=== PATIENT | female | born 1970 | race Caucasian/White ===

== ENCOUNTER 2017-11-10 18:13 | Emergency (ER) | payer OTHER ==
[2017-11-10] MEDS ORDERED: LORazepam 2 MG/ML VIAL ONE (18:54)
[2017-11-10] MEDS ORDERED: NA CHLORIDE 0.9% 1,000 ML ONE (18:54)
--- NOTE | 2017-11-10 19:18 | RAD REPORT ---
EXAM DESCRIPTION: CT - Head Brain Wo Cont - 11/10/2017 6:54 pm CLINICAL HISTORY: Headache COMPARISON: 2013 TECHNIQUE: Computed axial tomography of the head was obtained. IV contrast was not requested. All CT scans are performed using dose optimization technique as appropriate and may include automated exposure control or mA/KV adjustment according to patient size. FINDINGS: An intracranial bleed is not seen . The ventricles are normal in caliber. No extra-axial fluid collection is noted. Fluid within the sinuses/ mastoids is not seen. IMPRESSION: No acute intracranial abnormality is seen. If patient's symptoms persist MRI of the bra in would be recommended.
[2017-11-10 19:20] LABS: Absolute Lymphocytes (CBC) 2.7 K/uL (0.7-4.9); Absolute Monocytes 0.9 K/uL (0.1-1.3); Absolute Neutrophil 7.3 K/uL (1.8-8.0); Basophils % 0.6 % (0-1.3); Eosinophils % 0.5 % (0-4.4); Lymphocytes % 24.2 % (15.3-44.8); MCH 31.9 pg (27.0-35.0); MCV 96.1 fL (80-100); Monocytes % 8.4 % (3.3-12.3); RBC Red Blood Cell Count 4.37 M/uL (3.86-4.86)
[2017-11-10 19:28] LABS: Bicarbonate 25 mEq/L (21-31); Glucose Level 139 mg/dL (65-120); Lipase 29 U/L (22-51); Potassium 3.1 mEq/L (3.6-5.0); Sodium Level 136 mEq/L (135-145)
[2017-11-10 19:34] LABS: ALT/SGPT 13 IU/L (10-60); AST/SGOT 25 IU/L (10-42); Albumin 4.9 g/dL (3.2-5.5); Alkaline Phosphatase 65 IU/L (42-121); BUN Blood Urea Nitrogen 9 mg/dL (6-20); Bilirubin Direct 0.1 mg/dL (0-0.2); Bilirubin Total 0.6 mg/dL (0.3-1.2); Protein, Total 8.2 g/dL (6.0-8.3)
--- NOTE | 2017-11-10 20:06 | ER ---
Nurse's Notes [facility] Name: Viktoriya Portillo Age: 47 yrs Sex: Female : 1970 Arrival Date: 11/10/2017 Time: 18:17 Bed 7 Private MD: Diagnosis: Other peripheral vertigo Presentation: 11/10 18:17 Presenting complaint: EMS states: She's had a STEVE x2 days, started feeling weak and jl7 dizzy today, having a little trouble walking. Reports nausea, denies V/D. Transition of care:. Onset of symptoms was November 08, 2017. Care prior to arrival: None. 18:17 Method Of Arrival: EMS: [facility] jl7 18:17 Acuity: NENA 3 jl7 Triage Assessment: 18:40 General: Appears uncomfortable, Behavior is cooperative. Pain: Complains of pain in jl7 left upper quadrant and right upper quadrant. EENT: No signs and/or symptoms were reported regarding the EENT system. Neuro: Level of Consciousness is awake, alert, obeys commands, Oriented to person, place, time, situation. Cardiovascular: Patient's skin is warm and dry. Respiratory: Airway is patent Respiratory effort is even, unlabored, Respiratory pattern is regular, symmetrical. GI: Pt is actively vomiting undigested food, Reports nausea. : No signs and/or symptoms were reported regarding the genitourinary system. Derm: Skin is dry, Skin is pale, Skin temperature is warm. Musculoskeletal: No signs and/or symptoms reported regarding the musculoskeletal system. 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 - Social history:: Smoking status: Patient/guardian denies using tobacco. Screenin:55 Abuse screen: Denies threats or abuse. Denies injuries from another. Nutritional jl7 screening: No deficits noted. Tuberculosis screening: No symptoms or risk factors identified. Fall Risk IV access (20 points). Total Jj Fall Scale indicates No Risk (0-24 pts). Assessment: 18:55 General: Appears uncomfortable, Behavior is calm, cooperative, appropriate for age. jl7 Pain: Complains of pain in right upper quadrant and left upper quadrant Pain currently is 8 out of 10 on a pain scale. Quality of pain is described as aching, Is continuous. Neuro: Level of Consciousness is awake, alert, obeys commands, Oriented to person, place, time, situation. Cardiovascular: Patient's skin is warm and dry. Respiratory: Airway is patent Respiratory effort is even, unlabored, Respiratory pattern is regular, symmetrical. GI: Pt is actively vomiting undigested food. : No signs and/or symptoms were reported regarding the genitourinary system. EENT: No signs and/or symptoms were reported regarding the EENT system. Derm: Skin is dry, Skin is pale, Skin temperature is warm. Musculoskeletal: No signs and/or symptoms reported regarding the musculoskeletal system. 19:31 Reassessment: Patient is alert, oriented x 3, equal unlabored respirations, skin ak1 warm/dry/pink. Patient states symptoms have improved. pt stated the Ativan relieved the nausea. pt requested a rolled up sheet instead of the pillow. family at the bedside. will continue to monitor. . 19:32 GI: Bowel sounds present X 4 quads. Abd is soft and non tender X 4 quads. ak1 20:00 Reassessment: pt sleeping with even unlabored resp. pt woken to speak to ERP and ak1 ambulated down the portillo with steady gait and no dizziness report. . Vital Signs: 18:21 BP 154 / 100; Pulse 104; Resp 20 S; Temp 98.2(O); Pulse Ox 98% on R/A; Weight 52.16 kg jl7 (R); Height 5 ft. 3 in. (160.02 cm) (R); 18:45 BP 127 / 85; Pulse 92; Resp 19; Pulse Ox 100% on R/A; ae1 20:26 BP 110 / 66; Pulse 87; Resp 14; Temp 98; Pulse Ox 98% on R/A; Pain 0/10; ak1 18:21 Body Mass Index 20.37 (52.16 kg, 160.02 cm) jl7 NIH Stroke Scale Scores: 20:01 NIHSS Score: 0 ED Course: 18:17 Patient arrived in ED. jl7 18:20 Triage completed. jl7 18:21 Ayan Hummel MD is Attending Physician. gs 18:21 Arm band placed on right wrist. jl7 18:37 Rl Benson, RN is Primary Nurse. ae1 18:46 EKG done, by ED staff, reviewed by Ayan Hummel MD. jb1 18:[address] via stretcher. ae1 18:54 CT Head Brain wo Cont In Process Unspecified. EDMS 18:55 Patient has correct armband on for positive identification. Placed in gown. Bed in low jl7 position. Call light in reach. Side rails up X 1. Pulse ox on. NIBP on. Warm blanket given. 18:55 Initial lab(s) drawn, by va, sent to lab. Inserted saline lock: 20 gauge in right jl7 antecubital area, using aseptic technique. Blood collected. 19:13 Primary Nurse role handed off by Rl Benson RN jl7 19:13 Aristides Mendoza RN is Primary Nurse. jl7 19:13 Report given to CLAUDIA Lees. jl7 19:20 No provider procedures requiring assistance completed. ak1 19:49 Primary Nurse role handed off by Aristides Mendoza RN rg2 20:05 Josse Jimenez MD is Referral Physician. gs 20:24 Yoana Wayne RN is Primary Nurse. ak1 20:26 IV discontinued, intact, bleeding controlled, No redness/swelling at site. ak1 Administered Medications: 18:45 Drug: NS 0.9% 1000 ml Route: IV; Rate: 1 bolus; Site: right antecubital; ae1 20:25 Follow up: IV Status: Completed infusion ak1 18:47 Drug: Ativan 1 mg Route: IVP; Site: right antecubital; ae1 19:06 Follow up: Response: No adverse reaction jl7 19:00 Drug: Ativan 1 mg Route: IVP; Site: right antecubital; jl7 19:12 Follow up: Response: No adverse reaction jl7 Outcome: 20:05 Discharge ordered by . gs 20:26 Discharged to home via wheelchair, with family. ak1 20:26 Condition: good 20:26 Discharge instructions given to patient, family, Instructed on discharge instructions, follow up and referral plans. no drinking with medication, no driving heavy equipment, medication usage, Demonstrated understanding of instructions, follow-up care, medications, Prescriptions given X 1. 20:28 Patient left the ED. ak1 NIH Stroke Scale - NIH Stroke Score Date: 11/10/2017 Time: 20:01 Total Score = 0 1a. Level of Consciousness (LOC) - 0(Alert) 1b. Level of Consciousness (LOC) (Year \T\ Age) - 0(Both) 1c. LOC Commands (Open \T\ Closes Eyes/Rail Crew Member) - 0(Both) 2. Best Gaze (Lateral Gaze Paresis) - 0(Normal) 3. Visual Field Loss - 0(No visual loss) 4. Facial Palsy - 0(Normal) 5a. Left Arm: Motor (10-second hold) - 0(No drift) 5b. Right Arm: Motor (10-second hold) - 0(No drift) 6a. Left Leg: Motor (5-second hold - always test supine) - 0(No drift) 6b. Right Leg: Motor (5-second hold - always test supine) - 0(No drift) 7. Limb Ataxia (finger/nose \T\ heel/olivarez - test with eyes open) - 0(Absent) 8. Sensory Loss (pinprick arms/legs/face) - 0(Normal) 9. Best Language: Aphasia (description/naming/reading) - 0(No aphasia) 10. Dysarthria (speech clarity - read or repeat words) - 0(Normal) 11. Extinction and Inattention (visual/tactile/auditory/spatial/personal) - 0(No abnormality) Initials: gs Signatures: Dispatcher [employer] EDHaile Noyola jb1 Aidan You rg2 Yoana Wayne RN RN ak1 Rl Benson RN RN ae1 Aristides Mendoza RN RN jl7 Ayan Hummel MD MD
--- NOTE | 2017-11-10 20:06 | EDPHYS ---
Physician Documentation [facility] Name: Viktoriya Portillo Age: 47 yrs Sex: Female : 1970 Arrival Date: 11/10/2017 Time: 18:17 Bed 7 Private MD: ED Physician Ayan Hummel HPI: 11/10 20:00 This 47 yrs old Female presents to ER via EMS with complaints of gs Nausea/Vomiting, Dizzy. 20:00 The patient presents with sense of spinning, vertigo. Onset: The symptoms/episode gs began/occurred today. Context: occurred at home. Modifying factors: the symptoms are aggravated by movement of head, changing position. Associated signs and symptoms: Pertinent positives: vomiting. Severity of symptoms: At their worst the symptoms were severe in the emergency department the symptoms are unchanged. Patient's baseline: Neuro: alert and fully oriented, Motor: no deficits, Ambulation: walks without assistance, Speech: normal. The patient has experienced similar episodes in the past, a few times, history of nystagmus. The patient has not recently seen a physician. 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 - Social history:: Smoking status: Patient/guardian denies using tobacco. ROS: 20:01 Neuro: Positive for headache, headache mild not severe not thunder clap. gs 20:01 All other systems are negative. Exam: 20:01 Head/Face: Normocephalic, atraumatic. ENT: Nares patent. No nasal discharge, no gs septal abnormalities noted. Tympanic membranes are normal and external auditory canals are clear. Oropharynx with no redness, swelling, or masses, exudates, or evidence of obstruction, uvula midline. Mucous membranes moist. Neck: Trachea midline, no thyromegaly or masses palpated, and no cervical lymphadenopathy. Supple, full range of motion without nuchal rigidity, or vertebral point tenderness. No Meningismus. Chest/axilla: Normal chest wall appearance and motion. Nontender with no deformity. No lesions are appreciated. Cardiovascular: Regular rate and rhythm with a normal S1 and S2. No gallops, murmurs, or rubs. Normal PMI, no JVD. No pulse deficits. Respiratory: Lungs have equal breath sounds bilaterally, clear to auscultation and percussion. No rales, rhonchi or wheezes noted. No increased work of breathing, no retractions or nasal flaring. Abdomen/GI: Soft, non-tender, with normal bowel sounds. No distension or tympany. No guarding or rebound. No evidence of tenderness throughout. Back: No spinal tenderness. No costovertebral tenderness. Full range of motion. Skin: Warm, dry with normal turgor. Normal color with no rashes, no lesions, and no evidence of cellulitis. MS/ Extremity: Pulses equal, no cyanosis. Neurovascular intact. Full, normal range of motion. 20:01 Constitutional: The patient appears alert, awake, in obvious distress, moderately distressed. 20:01 Eyes: Pupils: no acute changes, Extraocular movements: Nystagmus: nystagmus with fast component noted, bilaterally, horizontal gaze. 20:01 Neuro: Orientation: is normal, Mentation: is normal, Memory: is normal, Cranial nerves: CN II- XII are normal as tested, Nystagmus with fast component in outer aspect of conjuctiva of right eye and inner aspect of conjunctiva of left eye. Cerebellar function: normal finger to nose testing, heel to olivarez testing is normal, Motor: moves all fours, strength is 5/5 in all extremities, Sensation: is normal, no obvious gross deficits. 20:01 ECG was reviewed by the Attending Physician. Vital Signs: 18:21 BP 154 / 100; Pulse 104; Resp 20 S; Temp 98.2(O); Pulse Ox 98% on R/A; Weight 52.16 kg jl7 (R); Height 5 ft. 3 in. (160.02 cm) (R); 18:45 BP 127 / 85; Pulse 92; Resp 19; Pulse Ox 100% on R/A; ae1 20:26 BP 110 / 66; Pulse 87; Resp 14; Temp 98; Pulse Ox 98% on R/A; Pain 0/10; ak1 18:21 Body Mass Index 20.37 (52.16 kg, 160.02 cm) jl7 NIH Stroke Scale Scores: 20:01 NIHSS Score: 0 gs MDM: 18:23 Patient medically screened. 20:01 Differential diagnosis: cardiac arrhythmia, idiopathic dizziness, vertigo. Data reviewed: vital signs, nurses notes. Response to treatment: the patient's symptoms have markedly improved after treatment, and as a result, I will discharge patient. 11/10 18:29 Order name: Basic Metabolic Panel; Complete Time: 19:51 11/10 18:29 Order name: CBC with Diff; Complete Time: 19:51 11/10 18:29 Order name: Hepatic Function; Complete Time: 19:51 11/10 18:29 Order name: Lipase; Complete Time: 19:51 11/10 18:29 Order name: CT Head Brain wo Cont; Complete Time: 19:51 11/10 18:29 Order name: IV Saline Lock; Complete Time: 18:46 11/10 18:29 Order name: Labs collected and sent; Complete Time: 18:46 11/10 18:29 Order name: EKG - Nurse/Tech; Complete Time: 18:46 gs EC:01 Rate is 94 beats/min. Rhythm is regular. NM interval is normal. QRS interval is normal. gs T waves are Flattened. No ST changes noted. Clinical impression: Abnormal EKG without significant change. Interpreted by me. Administered Medications: 18:45 Drug: NS 0.9% 1000 ml Route: IV; Rate: 1 bolus; Site: right antecubital; ae1 20:25 Follow up: IV Status: Completed infusion ak 18:47 Drug: Ativan 1 mg Route: IVP; Site: right antecubital; ae1 19:06 Follow up: Response: No adverse reaction jl7 19:00 Drug: Ativan 1 mg Route: IVP; Site: right antecubital; jl7 19:12 Follow up: Response: No adverse reaction 7 Disposition: 11/10/17 20:05 Discharged to Home. Impression: Other peripheral vertigo. - Condition is Stable. - Discharge Instructions: Benign Positional Vertigo. - Prescriptions for Ativan 1 mg Oral Tablet - take 1 tablet by ORAL route every 8 hours As needed; 12 tablet. - Medication Reconciliation Form, Thank You Letter, Antibiotic Education, Prescription Opioid Use form. - Follow up: Josse Jimenez MD; When: 2 - 3 days; Reason: Re-evaluation by your physician. NIH Stroke Scale - NIH Stroke Score Date: 11/10/2017 Time: 20:01 Total Score = 0 1a. Level of Consciousness (LOC) - 0(Alert) 1b. Level of Consciousness (LOC) (Year \T\ Age) - 0(Both) 1c. LOC Commands (Open \T\ Closes Eyes/Senior Manufacturing Supervisor) - 0(Both) 2. Best Gaze (Lateral Gaze Paresis) - 0(Normal) 3. Visual Field Loss - 0(No visual loss) 4. Facial Palsy - 0(Normal) 5a. Left Arm: Motor (10-second hold) - 0(No drift) 5b. Right Arm: Motor (10-second hold) - 0(No drift) 6a. Left Leg: Motor (5-second hold - always test supine) - 0(No drift) 6b. Right Leg: Motor (5-second hold - always test supine) - 0(No drift) 7. Limb Ataxia (finger/nose \T\ heel/olivarez - test with eyes open) - 0(Absent) 8. Sensory Loss (pinprick arms/legs/face) - 0(Normal) 9. Best Language: Aphasia (description/naming/reading) - 0(No aphasia) 10. Dysarthria (speech clarity - read or repeat words) - 0(Normal) 11. Extinction and Inattention (visual/tactile/auditory/spatial/personal) - 0(No abnormality) Initials: Signatures: Dispatcher [employer] EDYoana Bagley RN RN ak1 Rl Benson RN RN ae1 Aristides Mendoza, RN RN jl7 Ayan Hummel MD MD gs
--- NOTE | 2017-11-11 16:29 | EKG ---
Test Date: 2017-11-10 Test Time: 18:40:35 Interceptor Operator: LUTHER MEASUREMENT RESULTS: Intervals: Rate: 94 IN: 136 QRSD: 86 QT: 390 QTc: 487 [place]: P: 71 IN: 136 QRS: 5 T: 41 INTERPRETIVE STATEMENTS: Normal sinus rhythm Nonspecific ST abnormality Prolonged QT Abnormal ECG No previous ECG available for comparison Electronically Signed On 11-11-17 16:25:18 CDT by Jeff Hall
== END 2017-11-10 20:28 | disposition home or self-care (01) ==
LOC: ER 18:13
DX: H81.399 Other peripheral vertigo, unspecified ear (principal); I10 Essential (primary) hypertension; F41.9 Anxiety disorder, unspecified
CPT/HCPCS: 36415; 70450; 80048; 80076; 83690; 85025; 93005; 96361; 96374; 99285; J7030

== ENCOUNTER 2018-06-02 19:04 | Emergency (ER) | payer OTHER ==
[2018-06-02] MEDS ORDERED: TETRACAINE HCL 0.5% 2ML OPTH ONE (19:29)
[2018-06-02] MEDS ORDERED: FLUORESCEIN SODIUM 0.6 MG/WRAP ONE (20:03)
--- NOTE | 2018-06-02 20:21 | ER ---
Nurse's Notes [facility] Name: Viktoriya Portillo Age: 48 yrs Sex: Female : 1970 Arrival Date: 06/02/2018 Time: 19:05 Bed 19 Private MD: Mikey Mulligan T Diagnosis: Injury of conjunctiva and corneal abrasion without foreign body, right eye Presentation: 06/02 19:16 Presenting complaint: Patient states: "I'm caring for a chicken and it pecked me in my lp1 eye"; Patient states pain to right eye; States chicken pecked her in left eye yesterday; States "I'm seeing yellow in my right eye". Transition of care: patient was not received from another setting of care. Onset of symptoms was June 02, 2018 at 17:00. Risk Assessment: Do you want to hurt yourself or someone else? Patient reports no desire to harm self or others. Initial Sepsis Screen: Does the patient meet any 2 criteria? No. Patient's initial sepsis screen is negative. Does the patient have a suspected source of infection? No. Patient's initial sepsis screen is negative. Care prior to arrival: None. 19:16 Method Of Arrival: Ambulatory lp1 19:16 Acuity: NENA 3 lp1 Triage Assessment: 20:10 General: Appears in no apparent distress. uncomfortable, Behavior is calm, cooperative. jb4 Historical: - Allergies: 19:20 No Known Allergies; lp1 - Home Meds: 19:20 Alprazolam Oral [Active]; Zoloft Oral [Active]; Cimzia subcutaneous subcutaneous lp1 [Active]; Methotrexate Sodium Oral [Active]; Lamictal Oral [Active]; Folic Acid Oral [Active]; Lumigan ophthalmic ophthalmic [Active]; Adderall XR Oral [Active]; - PMHx: 19:20 ADD/ADHD; Anxiety; Hypertension; Glaucoma; lp1 - PSHx: 19:20 neck surgery x 4; Cholecystectomy; lp1 - Immunization history:: Adult Immunizations up to date. - Social history:: Smoking status: Patient/guardian denies using tobacco. - Ebola Screening: : No symptoms or risks identified at this time. Screenin:10 Abuse screen: Denies threats or abuse. Nutritional screening: No deficits noted. jb4 Tuberculosis screening: No symptoms or risk factors identified. Fall Risk None identified. Assessment: 20:10 General: Appears in no apparent distress. uncomfortable, Behavior is calm, cooperative, jb4 appropriate for age. Pain: Complains of pain in right eye Pain does not radiate. Pain currently is 10 out of 10 on a pain scale. Quality of pain is described as stabbing, Pain began 2 hours ago. Neuro: Level of Consciousness is awake, alert, obeys commands, Oriented to person, place, time, situation. Cardiovascular: Patient's skin is warm and dry. Respiratory: Airway is patent Respiratory effort is even, unlabored, Respiratory pattern is regular, symmetrical. GI: No signs and/or symptoms were reported involving the gastrointestinal system. : No signs and/or symptoms were reported regarding the genitourinary system. EENT: Eyes Right eye is reddened. Sclera/Cornea are reddened in outer aspect of conjuctiva of right eye, iris of right eye and inner aspect of conjuctiva of right eye. Derm: Skin is intact, Skin is pink, warm \\T\\ dry. Musculoskeletal: Circulation, motion, and sensation intact. Vital Signs: 19:15 BP 141 / 87; Pulse 80; Resp 16; Temp 98.3(TE); Pulse Ox 98% on R/A; Weight 52.16 kg; lp1 Height 5 ft. 3 in. (160.02 cm); Pain 10/10; 20:30 BP 126 / 83; Pulse 78; Resp 16; Pulse Ox 96% on R/A; jb4 19:15 Body Mass Index 20.37 (52.16 kg, 160.02 cm) lp1 Visual Acuity: 20:10 Left Eye Pupil size 4 mm, Normal, React To Light, Reactive To Accomodation; Right Eye jb4 Pupil size 4 mm, Normal, React To Light, Reactive To Accomodation; Without Lenses; ED Course: 19:05 Patient arrived in ED. es 19:07 Mikey Mulligan MD is Private Physician. es 19:18 Triage completed. lp1 19:21 Arm band placed on left wrist. lp1 19:32 Vincent Garber PA is PHCP. jr8 19:32 Kris Bland MD is Attending Physician. jr8 19:43 Laurent Sauceda RN is Primary Nurse. jb4 20:10 Patient has correct armband on for positive identification. Bed in low position. Call jb4 light in reach. Side rails up X 1. Pulse ox on. NIBP on. 20:10 Assist provider with eye exam of right eye. using fluorescein stain, Performed by Vincent JUAREZ Patient tolerated well. Patient did not have IV access during this emergency room visit. 20:20 Isidro Cunningham MD is Referral Physician. jr8 Administered Medications: 19:23 Drug: Tetracaine Drops 0.5 % 1 drops Route: Ophthalmic; Site: right eye; lp1 20:25 Follow up: Response: No adverse reaction; Pain is decreased jb4 20:28 Drug: Tetracaine Drops 0.5 % 2 drops Route: Ophthalmic; Site: right eye; jb4 20:30 Follow up: Response: No adverse reaction; Pain is decreased jb4 20:35 Drug: Gentamicin Drops 0.3 % 2 drops Route: Ophthalmic; Site: right eye; jb4 20:40 Follow up: Response: No adverse reaction jb4 Outcome: 20:21 Discharge ordered by . jr8 20:30 Discharged to home ambulatory. jb4 20:30 Condition: stable 20:30 Discharge instructions given to patient, Instructed on discharge instructions, follow up and referral plans. medication usage, Demonstrated understanding of instructions, follow-up care, medications, Prescriptions given X 2. 20:49 Patient left the ED. jb4 Signatures: Frida Mcdonald Laura, RN RN lp1 Vincent Garber PA PA jrLaurent Stewart RN RN jb4
--- NOTE | 2018-06-02 20:21 | EDPHYS ---
Physician Documentation [facility] Name: Viktoriya Portillo Age: 48 yrs Sex: Female : 1970 Arrival Date: 06/02/2018 Time: 19:05 Bed 19 Private MD: Mikey Mulligan T ED Physician Kris Bland HPI: 06/02 19:50 This 48 yrs old Female presents to ER via Ambulatory with complaints of Eye jr8 Injury. 19:50 The patient is experiencing blurred vision, pain, to the right eye, caused by chicken. jr8 Onset: The symptoms/episode began/occurred acutely, yesterday. Duration: the symptoms are continuous. Aggravated by light, opening eye, Alleviated by nothing. Associated signs and symptoms: Pertinent positives: None. Severity of symptoms: At their worst the symptoms were moderate in the emergency department the symptoms are unchanged. The patient has not experienced similar symptoms in the past. The patient has not recently seen a physician. stated that her chicken pecked her in her right eye. Now has blurry vision and pain to right eye . Historical: - Allergies: 19:20 No Known Allergies; lp1 - Home Meds: 19:20 Alprazolam Oral [Active]; Zoloft Oral [Active]; Cimzia subcutaneous subcutaneous lp1 [Active]; Methotrexate Sodium Oral [Active]; Lamictal Oral [Active]; Folic Acid Oral [Active]; Lumigan ophthalmic ophthalmic [Active]; Adderall XR Oral [Active]; - PMHx: 19:20 ADD/ADHD; Anxiety; Hypertension; Glaucoma; lp1 - PSHx: 19:20 neck surgery x 4; Cholecystectomy; lp1 - Immunization history:: Adult Immunizations up to date. - Social history:: Smoking status: Patient/guardian denies using tobacco. - Ebola Screening: : No symptoms or risks identified at this time. ROS: 19:50 ENT: Negative for injury, pain, and discharge, Neck: Negative for injury, pain, and jr8 swelling, Cardiovascular: Negative for chest pain, palpitations, and edema, Respiratory: Negative for shortness of breath, cough, wheezing, and pleuritic chest pain, Abdomen/GI: Negative for abdominal pain, nausea, vomiting, diarrhea, and constipation, Back: Negative for injury and pain, MS/Extremity: Negative for injury and deformity, Skin: Negative for injury, rash, and discoloration, Neuro: Negative for headache, weakness, numbness, tingling, and seizure. 19:50 Eyes: Positive for blurry vision, pain, of the right eye. Exam: 19:50 Visual Acuity: I have reviewed the nursing documentation. jr8 19:50 Head/Face: Normocephalic, atraumatic. Cardiovascular: Regular rate and rhythm with a normal S1 and S2. No gallops, murmurs, or rubs. Normal PMI, no JVD. No pulse deficits. Respiratory: Lungs have equal breath sounds bilaterally, clear to auscultation and percussion. No rales, rhonchi or wheezes noted. No increased work of breathing, no retractions or nasal flaring. Abdomen/GI: Soft, non-tender, with normal bowel sounds. No distension or tympany. No guarding or rebound. No evidence of tenderness throughout. Skin: Warm, dry with normal turgor. Normal color with no rashes, no lesions, and no evidence of cellulitis. MS/ Extremity: Pulses equal, no cyanosis. Neurovascular intact. Full, normal range of motion. Neuro: Awake and alert, GCS 15, oriented to person, place, time, and situation. Cranial nerves II-XII grossly intact. Motor strength 5/5 in all extremities. Sensory grossly intact. Cerebellar exam normal. Normal gait. 19:50 Eyes: Periorbital structures: appear normal, Pupils: equal, round, and reactive to light and accomodation, Extraocular movements: intact throughout, Conjunctiva: injected, in the right eye, Corneas: abrasion, approximately 4 mm(s), on the right, at 1 o'clock, another smaller abrasion at center of cornea , a fluorescein strip employed to appreciate the findings, Sclera: no appreciated abnormality, Anterior chamber: normal, Lids and lashes: appear normal, Examination of the other eye reveals no obvious gross abnormality. Vital Signs: 19:15 BP 141 / 87; Pulse 80; Resp 16; Temp 98.3(TE); Pulse Ox 98% on R/A; Weight 52.16 kg; lp1 Height 5 ft. 3 in. (160.02 cm); Pain 10/10; 20:30 BP 126 / 83; Pulse 78; Resp 16; Pulse Ox 96% on R/A; jb4 19:15 Body Mass Index 20.37 (52.16 kg, 160.02 cm) lp1 Visual Acuity: 20:10 Left Eye Pupil size 4 mm, Normal, React To Light, Reactive To Accomodation; Right Eye jb4 Pupil size 4 mm, Normal, React To Light, Reactive To Accomodation; Without Lenses; Procedures: 19:50 Eye Exam: Fluorescein. jr8 MDM: 19:32 Patient medically screened. jr8 19:50 Data reviewed: vital signs, nurses notes, and as a result, I will discharge patient. jr8 Data interpreted: Pulse oximetry: on room air is 98 %. Interpretation: normal. Counseling: I had a detailed discussion with the patient and/or guardian regarding: the historical points, exam findings, and any diagnostic results supporting the discharge/admit diagnosis, the need for outpatient follow up, an opthalmologist, to return to the emergency department if symptoms worsen or persist or if there are any questions or concerns that arise at home. Administered Medications: 19:23 Drug: Tetracaine Drops 0.5 % 1 drops Route: Ophthalmic; Site: right eye; lp1 20:25 Follow up: Response: No adverse reaction; Pain is decreased jb4 20:28 Drug: Tetracaine Drops 0.5 % 2 drops Route: Ophthalmic; Site: right eye; jb4 20:30 Follow up: Response: No adverse reaction; Pain is decreased jb4 20:35 Drug: Gentamicin Drops 0.3 % 2 drops Route: Ophthalmic; Site: right eye; jb4 20:40 Follow up: Response: No adverse reaction jb4 Disposition: 06/03 09:34 Co-signature as Attending Physician, Kris Bland MD I agree with the assessment and dalia plan of care. Disposition: 06/02/18 20:21 Discharged to Home. Impression: Injury of conjunctiva and corneal abrasion without foreign body, right eye. - Condition is Stable. - Discharge Instructions: Corneal Abrasion. - Prescriptions for Gentamicin 0.3 % Ophthalmic Drops - instill 2 drop by OPHTHALMIC route every 4 hours; 1 bottle. Tylenol- Codeine #3 300-30 mg Oral Tablet - take 2 tablets by ORAL route every 6 hours As needed; 20 tablet. - Medication Reconciliation Form, Thank You Letter, Antibiotic Education, Prescription Opioid Use form. - Follow up: Isidro Cunningham MD; When: Tomorrow; Reason: Recheck today's complaints, Continuance of care, Re-evaluation by your physician. - Problem is new. - Symptoms have improved. Signatures: Kris Bland MD MD cha Pena, Laura, RN RN lp1 Vincent Garber PA PA jr8 Laurent Sauceda RN RN jb4 Corrections: (The following items were deleted from the chart) 06/02 20:20 19:50 Eyes: Periorbital structures: appear normal, Pupils: equal, round, and reactive jr8 to light and accomodation, Extraocular movements: intact throughout, Conjunctiva: injected, in the right eye, Corneas: abrasion, approximately 3 mm(s), on the right, a fluorescein strip employed to appreciate the findings, Sclera: no appreciated abnormality, Anterior chamber: normal, Lids and lashes: appear normal, Examination of the other eye reveals no obvious gross abnormality, jr8 20:49 20:21 06/02/2018 20:21 Discharged to Home. Impression: Injury of conjunctiva and jb4 corneal abrasion without foreign body, right eye. Condition is Stable. Forms are Medication Reconciliation Form, Thank You Letter, Antibiotic Education, Prescription Opioid Use. Follow up: Isidro Cunningham; When: Tomorrow; Reason: Recheck today's complaints, Continuance of care, Re-evaluation by your physician. Problem is new. Symptoms have improved. jr8
[2018-06-02] MEDS ORDERED: GENTAMICIN 0.3% OPTH DROP 5ML ONE (20:37)
== END 2018-06-02 20:49 | disposition home or self-care (01) ==
LOC: ER 19:04
DX: S05.01XA Injury of conjunctiva and corneal abrasion without foreign body, right eye, initial encounter (principal); W61.32XA Struck by chicken, initial encounter; Y93.9 Activity, unspecified; Y92.9 Unspecified place or not applicable; I10 Essential (primary) hypertension; F41.9 Anxiety disorder, unspecified; F90.9 Attention-deficit hyperactivity disorder, unspecified type
CPT/HCPCS: 99284

== ENCOUNTER 2018-07-12 15:35 | Emergency (ER) | payer OTHER ==
[2018-07-12 16:08] LABS: Absolute Lymphocytes (CBC) 1.9 K/uL (0.7-4.9); Absolute Neutrophil 5.1 K/uL (1.8-8.0); Basophils % 0.7 % (0-1.3); Eosinophils % 0.9 % (0-4.4); Hematocrit 43.1 % (36.0-45.0); Lymphocytes % 22.9 % (15.3-44.8); MCH 33.1 pg (27.0-35.0); MCV 94.5 fL (80-100); MPV 7.7 fL (7.6-11.3); Monocytes % 12.3 % (3.3-12.3); RBC Red Blood Cell Count 4.56 M/uL (3.86-4.86)
[2018-07-12 16:12] LABS: Protime INR 1.07
[2018-07-12 16:33] LABS: ALT/SGPT 24 U/L (12-78); AST/SGOT 36 U/L (15-37); Albumin 4.3 g/dL (3.4-5.0); Alkaline Phosphatase 84 U/L (45-117); BUN Blood Urea Nitrogen 13 mg/dL (7-18); Bicarbonate 29 mmol/L (21-32); Bilirubin Direct < 0.1 mg/dL (0-0.2); Bilirubin Total 0.5 mg/dL (0.2-1.0); Glucose Level 81 mg/dL (74-106); Potassium 4.6 mmol/L (3.5-5.1); Protein, Total 8.7 g/dL (6.4-8.2); Sodium Level 141 mmol/L (136-145)
[2018-07-12 16:33] LABS: Barbiturates NEGATIVE (NEGATIVE); Benzodiazepines NEGATIVE (NEGATIVE); Cocaine NEGATIVE (NEGATIVE); METHAMPHETAM NEGATIVE (NEGATIVE); Methadone NEGATIVE (NEGATIVE); Opiates NEGATIVE (NEGATIVE); Phencyclidine NEGATIVE (NEGATIVE); THC Cannibis POSITIVE (NEGATIVE)
[2018-07-12] MEDS ORDERED: NA CHLORIDE 0.9% 1,000 ML ONE (16:34)
[2018-07-12 16:50] LABS: Urine Blood NEGATIVE (NEG); Urine Glucose NEGATIVE (NEG); Urine Protein NEGATIVE (NEG)
--- NOTE | 2018-07-12 17:12 | EDPHYS ---
Physician Documentation [facility] Name: Viktoriya Portillo Age: 48 yrs Sex: Female : 1970 Arrival Date: 07/12/2018 Time: 15:49 Bed 6 Private MD: ED Physician Kris Bland HPI: 07/12 17:04 This 48 yrs old Female presents to ER via Law Enforcement with complaints of dalia Suicidal Ideation. 17:04 The patient presents to the emergency department with depression, suicide ideation, and dalia the patient has a plan, to overdose with medications. Onset: The symptoms/episode began/occurred 2 day(s) ago. Past psychiatric history: Prior diagnosis: depression, ptsd. Associated signs and symptoms: The patient has no apparent associated signs or symptoms. Severity of symptoms: At their worst the symptoms were mild in the emergency department the symptoms are unchanged. The patient has not experienced similar symptoms in the past. suicidal , not, hx depression and ptsd homicidal. Historical: - Allergies: 16:06 No Known Allergies; sv - Home Meds: 16:06 Zoloft Oral [Active]; Lamictal Oral [Active]; Cimzia subcutaneous [Active]; Alprazolam sv Oral [Active]; Methotrexate Sodium Oral [Active]; Lumigan ophthalmic [Active]; - PMHx: 16:06 ADD/ADHD; Anxiety; Glaucoma; Hypertension; Ankylosing spondylosis; PFO; PTSD; Optic sv neuropathy; skin cancer; 17:35 Bipolar disorder; sv - PSHx: 16:06 Cholecystectomy; neck surgery x 4; sv - Immunization history:: Adult Immunizations up to date. - Social history:: Smoking status: Patient/guardian denies using tobacco, Patient/guardian denies using alcohol, street drugs, IV drugs. - Ebola Screening: : No symptoms or risks identified at this time. - Family history:: not pertinent. ROS: 17:04 Constitutional: Negative for fever, chills, and weight loss, Eyes: Negative for injury, dalia pain, redness, and discharge, ENT: Negative for injury, pain, and discharge, Neck: Negative for injury, pain, and swelling, Cardiovascular: Negative for chest pain, palpitations, and edema, Respiratory: Negative for shortness of breath, cough, wheezing, and pleuritic chest pain, Abdomen/GI: Negative for abdominal pain, nausea, vomiting, diarrhea, and constipation, Back: Negative for injury and pain, : Negative for injury, bleeding, discharge, and swelling, MS/Extremity: Negative for injury and deformity, Skin: Negative for injury, rash, and discoloration, Neuro: Negative for headache, weakness, numbness, tingling, and seizure, Allergy/Immunology: Negative for hives, rash, and allergies, Endocrine: Negative for neck swelling, polydipsia, polyuria, polyphagia, and marked weight changes, Hematologic/Lymphatic: Negative for swollen nodes, abnormal bleeding, and unusual bruising. 17:04 Psych: Positive for depression, suicidal ideation. Exam: 17:04 Constitutional: This is a well developed, well nourished patient who is awake, alert, dalia and in no acute distress. Head/Face: Normocephalic, atraumatic. Eyes: Pupils equal round and reactive to light, extra-ocular motions intact. Lids and lashes normal. Conjunctiva and sclera are non-icteric and not injected. Cornea within normal limits. Periorbital areas with no swelling, redness, or edema. ENT: Nares patent. No nasal discharge, no septal abnormalities noted. Tympanic membranes are normal and external auditory canals are clear. Oropharynx with no redness, swelling, or masses, exudates, or evidence of obstruction, uvula midline. Mucous membranes moist. Neck: Trachea midline, no thyromegaly or masses palpated, and no cervical lymphadenopathy. Supple, full range of motion without nuchal rigidity, or vertebral point tenderness. No Meningismus. Chest/axilla: Normal chest wall appearance and motion. Nontender with no deformity. No lesions are appreciated. Cardiovascular: Regular rate and rhythm with a normal S1 and S2. No gallops, murmurs, or rubs. Normal PMI, no JVD. No pulse deficits. Respiratory: Lungs have equal breath sounds bilaterally, clear to auscultation and percussion. No rales, rhonchi or wheezes noted. No increased work of breathing, no retractions or nasal flaring. Abdomen/GI: Soft, non-tender, with normal bowel sounds. No distension or tympany. No guarding or rebound. No evidence of tenderness throughout. Back: No spinal tenderness. No costovertebral tenderness. Full range of motion. Skin: Warm, dry with normal turgor. Normal color with no rashes, no lesions, and no evidence of cellulitis. MS/ Extremity: Pulses equal, no cyanosis. Neurovascular intact. Full, normal range of motion. Neuro: Awake and alert, GCS 15, oriented to person, place, time, and situation. Cranial nerves II-XII grossly intact. Motor strength 5/5 in all extremities. Sensory grossly intact. Cerebellar exam normal. Normal gait. 17:04 Psych: Behavior/mood is pleasant, Affect is calm, Oriented to person, place, time, Patient has no thoughts/intents to harm self or others. Judgement / Insight is normal. Delusions/hallucinations are not present. Vital Signs: 15:42 BP 120 / 88; Pulse 68; Resp 16; Temp 98.1(O); Pulse Ox 99% on R/A; Weight 49.9 kg; sv Height 5 ft. 3 in. (160.02 cm); Pain 0/10; 15:42 Body Mass Index 19.49 (49.90 kg, 160.02 cm) sv MDM: 15:58 Patient medically screened. [facility] 07/12 15:49 Order name: Acetaminophen; Complete Time: 18: 07/12 15:49 Order name: Basic Metabolic Panel; Complete Time: 18: 07/12 15:49 Order name: CBC with Diff; Complete Time: 18: 07/12 15:49 Order name: ETOH Level; Complete Time: 18:02 07/12 15:49 Order name: Hepatic Function; Complete Time: 18:02 07/12 15:49 Order name: PT-INR; Complete Time: 18:02 07/12 15:49 Order name: Ptt, Activated; Complete Time: 18:02 07/12 15:49 Order name: Salicylate; Complete Time: 18:02 07/12 15:49 Order name: Urine Drug Screen; Complete Time: 18: 07/12 15:59 Order name: TSH; Complete Time: 18: [facility] 07/12 16:18 Order name: Urine Dipstick--Ancillary (enter results); Complete Time: 18:02 07/12 16:18 Order name: Urine --Ancillary (enter results); Complete Time: 18:02 07/12 15:49 Order name: EKG; Complete Time: 15:50 07/12 15:49 Order name: EKG - Nurse/Tech; Complete Time: 15:59 07/12 15:49 Order name: IV Saline Lock; Complete Time: 15:59 07/12 15:49 Order name: Labs collected and sent; Complete Time: 15:59 07/12 15:49 Order name: Urine Dipstick-Ancillary (obtain specimen); Complete Time: 16:14 sv Administered Medications: 16:28 Drug: NS 0.9% 1000 ml Route: IV; Rate: 1 bolus; Site: left antecubital; sv 17:30 Follow up: Response: No adverse reaction; IV Status: Completed infusion; IV Intake: sv 1000ml 18:14 Drug: Rocephin - (cefTRIAXone) 1 grams Route: IVPB; Infused Over: 30 mins; Site: left sv antecubital; 18:17 Follow up: Response: No adverse reaction; IV Status: Completed infusion; given IVP per sv pharmacy. 18:18 Drug: Zofran 4 mg Route: IVP; Site: left antecubital; sv 18:27 Follow up: Response: No adverse reaction sv 18:25 Drug: Ativan 1 mg Route: IVP; Site: left antecubital; sv 18:27 Follow up: Response: Medication administered at discharge. Disposition: 07/12/18 17:11 Transfer ordered to Psych Facility. Diagnosis are Suicidal ideations, Post-traumatic stress disorder (PTSD), Major depressive disorder, recurrent. - Reason for transfer: Higher level of care. - Accepting physician is to psych. - Condition is Stable. - Problem is new. - Symptoms have improved. Signatures: Dispatcher [employer] Nitza Seals RN RN Kris Bland MD MD [facility] Corrections: (The following items were deleted from the chart) 17:27 17:11 07/12/2018 17:[address] [facility]. [facility] Diagnosis is Suicidal ideations; Post-traumatic stress disorder (PTSD); Major depressive disorder, recurrent. Reason for transfer: Higher level of care. Accepting physician is to psych. Condition is Stable. Problem is new. Symptoms have improved. [facility] 18:32 17:27 07/12/2018 17:11 Transfer ordered to Psych Facility. Diagnosis is Suicidal sv ideations; Post-traumatic stress disorder (PTSD); Major depressive disorder, recurrent. Reason for transfer: Higher level of care. Accepting physician is to psych. Condition is Stable. Problem is new. Symptoms have improved. dalia
--- NOTE | 2018-07-12 17:12 | ER ---
Nurse's Notes [facility] Name: Viktoriya Portillo Age: 48 yrs Sex: Female : 1970 Arrival Date: 07/12/2018 Time: 15:49 Bed 6 Private MD: Diagnosis: Suicidal ideations;Post-traumatic stress disorder (PTSD);Major depressive disorder, recurrent Presentation: 07/12 15:33 Presenting complaint: Patient states: "My friend called 911 because I guess I've been sv talking about hurting myself for awhile. I hear voices and they are me. I don't feel human. I don't want to live anymore." Denies homicidal ideation. Pt's plan is "To take a bunch of my Xanax.". Transition of care: patient was not received from another setting of care. Onset of symptoms was July 12, 2018. Risk Assessment: Do you want to hurt yourself or someone else? Patient reports desire/thoughts of hurting themselves or someone else. Provider notified. Initial Sepsis Screen: Does the patient meet any 2 criteria? No. Patient's initial sepsis screen is negative. Does the patient have a suspected source of infection? No. Patient's initial sepsis screen is negative. Care prior to arrival: None. 15:33 Method Of Arrival: Law Enforcement: [place] [employer] sv 15:33 Acuity: NENA 2 sv Triage Assessment: 15:40 General: Appears in no apparent distress. comfortable, slender, Behavior is calm, sv cooperative, appropriate for age. Pain: Denies pain. EENT: No signs and/or symptoms were reported regarding the EENT system. Neuro: Level of Consciousness is awake, alert, obeys commands, Oriented to person, place, time, situation, Moves all extremities. Full function Gait is steady, Speech is normal, Facial symmetry appears normal. Cardiovascular: Patient's skin is warm and dry. Respiratory: Respiratory effort is even, unlabored, Respiratory pattern is regular, symmetrical. GI: No signs and/or symptoms were reported involving the gastrointestinal system. : No signs and/or symptoms were reported regarding the genitourinary system. Derm: Skin is pink, warm \\T\\ dry. Musculoskeletal: No signs and/or symptoms reported regarding the musculoskeletal system. Historical: - Allergies: 16:06 No Known Allergies; sv - Home Meds: 16:06 Zoloft Oral [Active]; Lamictal Oral [Active]; Cimzia subcutaneous [Active]; Alprazolam sv Oral [Active]; Methotrexate Sodium Oral [Active]; Lumigan ophthalmic [Active]; - PMHx: 16:06 ADD/ADHD; Anxiety; Glaucoma; Hypertension; Ankylosing spondylosis; PFO; PTSD; Optic sv neuropathy; skin cancer; 17:35 Bipolar disorder; sv - PSHx: 16:06 Cholecystectomy; neck surgery x 4; sv - Immunization history:: Adult Immunizations up to date. - Social history:: Smoking status: Patient/guardian denies using tobacco, Patient/guardian denies using alcohol, street drugs, IV drugs. - Ebola Screening: : No symptoms or risks identified at this time. - Family history:: not pertinent. Screenin:32 Abuse screen: Denies threats or abuse. Denies injuries from another. Nutritional sv screening: No deficits noted. Tuberculosis screening: No symptoms or risk factors identified. Fall Risk None identified. Assessment: 16:31 Reassessment: Pt offered food but refused at this time. sv 17:18 Reassessment: Report given to Whit RN at [facility]. sv 17:38 Reassessment: Report given to Nahed TAYLOR at [facility]. Dr Dutton doctor to doctor sv report phone number is [phone]. 18:10 Reassessment: Called and spoke with Whit at [facility] to confirm that it is ok sv for pt to have Ativan before departure. Whit stated that they would have no problem with intake. Psych: 15:40 Subjective: Patient's mood is sad, hopeless, Delusions are denied, Hallucinations are sv auditory, Having thoughts of suicide. Plan for suicide is "To take a bunch of Xanax.". Objective: Patient is cooperative, Speech is normal, Affect is appropriate. 16:15 Interventions: Removed personal items and placed in bag. Patient placed in hospital sv gown. Searched person for dangerous items. Urine collected and sent for urine drug test. Belonging list filled out. Patient reassessed during use of restraints. Patient is physically safe. Patient's cardiac status is stable. Patient's respirations are even and unlabored. Patient has good circulation in all extremities as indicated by capillary refill < 3 seconds. Patient's ROM assessed and is intact. Patient nutrition and hydration needs will continue to be monitored and addressed. Patient hygiene and elimination needs met. Patient assessed for signs of distress. Patient remains reasonably comfortable at this time. Assisted patient in de-escalation of behavior by removing stimuli causing behavior where possible. Suicide Risk Assessment: Sad Person Scale: Sex of patient: Female: Score 0 points. Age of patient: Score 0 point if patient falls outside of specified age parameters. Depression: Score 1 point if signs of depression are present. Previous Attempt: Score 1 point if patient has previously attempted suicide. Substance Abuse: Score 0 point if patient does not abuse alcohol or drugs. Rational Thinking: Score 0 point if patient has rational thinking. Social Support: Score 0 if social support is present/available. Organized Plan: Score 1 point if patient had a plan in place. Relationship: Score 1 point if patient is , , , or for a single male Chronic Sickness: Score 1 point if patient has illness, chronic, debilitating, or severe. TOTAL POINTS: If total points are 5-6, proposed clinical action is to strongly consider hospitalization, depending upon confidence in the follow-up arrangement. Implement suicide precautions. Safety Checks: Personal items have been removed. Door is open. Visitors are present. Pt denies substance abuse. 18:30 Commitment: Patient will be a voluntary commitment. sv Vital Signs: 15:42 BP 120 / 88; Pulse 68; Resp 16; Temp 98.1(O); Pulse Ox 99% on R/A; Weight 49.9 kg; sv Height 5 ft. 3 in. (160.02 cm); Pain 0/10; 15:42 Body Mass Index 19.49 (49.90 kg, 160.02 cm) sv ED Course: 15:40 Arm band placed on. sv 15:45 Safety Checks: Personal items have been removed. The door is open or patient has been sv placed in a hallway bed/chair. There are no family/friend visitors at this time Sitter present at this time. 15:45 Patient has correct armband on for positive identification. Placed in gown. Bed in low sv position. Warm blanket given. Head of bed elevated. 15:49 Patient arrived in ED. sv 15:49 Nitza Garcia RN is Primary Nurse. sv 15:55 Initial lab(s) drawn, by me, sent to lab. Inserted saline lock: 20 gauge in left sv antecubital area, using aseptic technique. Blood collected. Flushed left antecubital with 5 ml normal saline. 15:58 Kris Bland MD is Attending Physician. [facility] 16:00 Safety Checks: Personal items have been removed. The door is open or patient has been sv placed in a hallway bed/chair. There are no family/friend visitors at this time Sitter present at this time. 16:03 Triage completed. 16:50 called and spoke with Danyell at the [facility] transfer. they are at capacity and are eb unable to take any transfers at this time. 17:02 faxed patient records to the following facilities in the attempt to find placement. [facility]; [facility]; [facility] ; [facility]; [facility]; [facility], [facility], [facility], [facility], [facility]. 17:13 connected Whit from [facility] with RN for nurse to nurse. eb 17:32 connected Reinaldo from [facility] with RN for nurse to nurse. eb 17:32 connected Isela from [facility] with RN for nurse to nurse. eb 17:[address] Bain with Dr Bland for patient transfer consultation/ he has eb accepted the patient in transfer/. 17:41 administrative approval given by Michelle Hoffman at [facility]. eb 18:32 No provider procedures requiring assistance completed. IV discontinued, intact, sv bleeding controlled, No redness/swelling at site. Pressure dressing applied. Administered Medications: 16:28 Drug: NS 0.9% 1000 ml Route: IV; Rate: 1 bolus; Site: left antecubital; sv 17:30 Follow up: Response: No adverse reaction; IV Status: Completed infusion; IV Intake: sv 1000ml 18:14 Drug: Rocephin - (cefTRIAXone) 1 grams Route: IVPB; Infused Over: 30 mins; Site: left sv antecubital; 18:17 Follow up: Response: No adverse reaction; IV Status: Completed infusion; given IVP per pharmacy. 18:18 Drug: Zofran 4 mg Route: IVP; Site: left antecubital; sv 18:27 Follow up: Response: No adverse reaction sv 18:25 Drug: Ativan 1 mg Route: IVP; Site: left antecubital; sv 18:27 Follow up: Response: Medication administered at discharge. sv Intake: 17:30 IV: 1000ml; Total: 1000ml. sv Outcome: 17:11 ER care complete, transfer ordered by MD. gómez 18:32 Transferred by ground EMS Transfer form completed. Note: Report given to Felton with sv [facility]. 18:32 Condition: stable 18:32 Instructed on the need for transfer. 18:32 Patient left the ED. sv Signatures: Nitza Garcia RN RN sv Anderson, Corey, MD MD cha Botello, Elizabeth eb Corrections: (The following items were deleted from the chart) 17:14 17:02 faxed patient records to the following facilities in the attempt to find eb placement. eb
[2018-07-12] MEDS ORDERED: LORazepam 2 MG/ML VIAL ONE (18:17)
[2018-07-12] MEDS ORDERED: CEFTRIAXONE/SWI 1gm 1 GM/10 ML SYR ONE (18:18)
[2018-07-12] MEDS ORDERED: ONDANSETRON 4 MG/2 ML VIAL ONE (18:22)
--- NOTE | 2018-07-13 07:36 | EKG ---
Test Date: 2018-07-12 Test Time: 15:58:36 Spiral Winding Machine Helper: MARY MEASUREMENT RESULTS: Intervals: Rate: 66 MA: 132 QRSD: 80 QT: 416 QTc: 436 [place]: P: 69 MA: 132 QRS: 16 T: 37 INTERPRETIVE STATEMENTS: Normal sinus rhythm Cannot rule out Anterior infarct, age undetermined Abnormal ECG Compared to ECG 11/10/2017 18:40:35 Myocardial infarct finding now present ST (T wave) deviation no longer present Prolonged QT interval no longer present Electronically Signed On 07-13-18 07:34:54 DISHWASHER PREPARER by Bubba Haas
== END 2018-07-12 18:32 ==
LOC: ER 15:35
DX: F33.9 Major depressive disorder, recurrent, unspecified (principal); F43.10 Post-traumatic stress disorder, unspecified; R45.851 Suicidal ideations; R94.31 Abnormal electrocardiogram [ECG] [EKG]; Z79.899 Other long term (current) drug therapy
CPT/HCPCS: 36415; 80048; 80076; 80307 ×8; 80320; 80329 ×2; 81003; 81025; 84443; 85025; 85610; 85730; 93005; 96361; 96374; 96375; 99285; J0696; J2405; J7030

== ENCOUNTER 2018-09-29 14:27 | Emergency (ER) | payer OTHER ==
--- NOTE | 2018-09-29 16:11 | RAD REPORT ---
EXAM DESCRIPTION: CT - Head Brain Wo Cont - 09/29/2018 3:52 pm CLINICAL HISTORY: Visual disturbance COMPARISON: CT October 2017 TECHNIQUE: Axial 5 mm thick images of the head were obtained without IV contrast. All CT scans are performed using dose optimization technique as appropriate and may include automated exposure control or mA/KV adjustment according to patient size. FINDINGS: No intracranial hemorrhage, mass, edema or shift of mid-line structures. No acute infarcti on changes seen. No abnormal extra-axial fluid collections. Ventricles and basilar cisterns are north l old similar in appearance to the comparison. Mastoid air cells and visualized portions of the paranasal sinuses are clear. No acute bony findings. IMPRESSION: Negative non-contrast CT head examination.
--- NOTE | 2018-09-29 16:21 | RAD REPORT ---
EXAM DESCRIPTION: RAD - Chest Single View - 09/29/2018 4:15 pm CLINICAL HISTORY: Blurred vision, shortness of breath COMPARISON: None. TECHNIQUE: AP portable chest image was obtained 1601 hours . FINDINGS: Lungs are clear. Heart and vasculature are normal. No measurable pleural effusion and no p neumothorax. No acute bony abnormality seen. No acute aortic findings suspected. IMPRESSION: No acute cardiopulmonary process.
[2018-09-29 16:23] LABS: Absolute Lymphocytes (CBC) 2.4 K/uL (0.7-4.9); Absolute Monocytes 0.7 K/uL (0.1-1.3); Absolute Neutrophil 2.6 K/uL (1.8-8.0); Eosinophils % 1.9 % (0-4.4); Hematocrit 43.5 % (36.0-45.0); Lymphocytes % 40.4 % (15.3-44.8); MPV 7.4 fL (7.6-11.3); Monocytes % 11.9 % (3.3-12.3); RBC Red Blood Cell Count 4.57 M/uL (3.86-4.86)
[2018-09-29 16:24] LABS: Protime INR 1.09
[2018-09-29 16:34] LABS: Urine Blood TRACE (NEG); Urine Glucose NEGATIVE (NEG); Urine Protein NEGATIVE (NEG); Urine pH 7.5 (5.0-7.0)
[2018-09-29 16:39] LABS: ALT/SGPT 24 U/L (12-78); AST/SGOT 19 U/L (15-37); Albumin 4.2 g/dL (3.4-5.0); Alkaline Phosphatase 66 U/L (45-117); BUN Blood Urea Nitrogen 10 mg/dL (7-18); Bicarbonate 31 mmol/L (21-32); Bilirubin Direct < 0.1 mg/dL (0-0.2); Bilirubin Total 0.2 mg/dL (0.2-1.0); Glucose Level 98 mg/dL (74-106); Magnesium 2.1 mg/dL (1.8-2.4); NT PRO-BNP 39 pg/mL (<125); Potassium 3.8 mmol/L (3.5-5.1); Protein, Total 7.7 g/dL (6.4-8.2); Sodium Level 142 mmol/L (136-145); Troponin (Emerg Dept Use Only) < 0.02 ng/mL (0.0-0.045)
--- NOTE | 2018-09-29 16:54 | EKG ---
Test Date: 2018-09-29 Test Time: 16:11:57 Director Water And Waste Services: WOLF MEASUREMENT RESULTS: Intervals: Rate: 82 ME: 134 QRSD: 84 QT: 394 QTc: 460 [place]: P: 71 ME: 134 QRS: 34 T: 53 INTERPRETIVE STATEMENTS: Normal sinus rhythm Normal ECG Compared to ECG 07/12/2018 15:58:36 Myocardial infarct finding no longer present Electronically Signed On 09-29-18 16:54:10 USER SUPPORT ANALYST by Bubba Haas
[2018-09-29] MEDS ORDERED: NA CHLORIDE 0.9% 1,000 ML ONE (17:06)
[2018-09-29] MEDS ORDERED: ASPIRIN EC 81 MG TAB PO ONE (17:10)
--- NOTE | 2018-09-29 17:58 | RAD REPORT ---
EXAM DESCRIPTION: MRI - Brain Wo Cont - 09/29/2018 5:46 pm CLINICAL HISTORY: TIA, visual changes COMPARISON: None. TECHNIQUE: Sagittal T1-weighted images were obtained along with axial PD, heavily T2-weighted and T2 -FLAIR images. Axial DWI and ADC mapping sequences were also obtained along with coronal heavily T2-w eighted images. FINDINGS: No intracranial hemorrhage, mass or acute infarction. There is no edema or shift of midlin e structures. No extra-axial fluid collections. Johnson-matter/white matter junction is preserved. Signa l voids are seen as a normal finding in the major intracranial vessels. No globe or orbital content abnormality. No sella or supra sella mass lesions seen. Optic chiasm is n ormal. No abnormality along the optic radiations. Mastoid air cells and paranasal sinuses are clear. IMPRESSION: Negative non-contrast MRI of the Brain.
[2018-09-29] MEDS ORDERED: FOLIC ACID 1 MG TABLET PO ONE (18:00)
[2018-09-29] MEDS ORDERED: FOLIC ACID 1 MG in NA CHLORIDE 0.9% 50 ML IV ONE (18:00)
--- NOTE | 2018-09-29 18:13 | ER ---
Nurse's Notes [facility] Name: Viktoriya Portillo Age: 48 yrs Sex: Female : 1970 Arrival Date: 09/29/2018 Time: 14:31 Bed 15 Private MD: Mikey Mulligan T Diagnosis: Visual disturbances;Tremor, unspecified Presentation: 09/29 14:34 Presenting complaint: Patient states: "I have optic neuropathy and glaucoma, and my hb vision sometimes gets worse and then goes away. Today my vision suddenly went triple and I got really shaky all over.". Transition of care: patient was not received from another setting of care. Onset of symptoms was September 29, 2018. Risk Assessment: Do you want to hurt yourself or someone else? Patient reports no desire to harm self or others. Care prior to arrival: None. 14:34 Method Of Arrival: Wheelchair hb 14:34 Acuity: NENA 3 hb 16:41 Initial Sepsis Screen: Does the patient meet any 2 criteria? No. Patient's initial ls4 sepsis screen is negative. Does the patient have a suspected source of infection? No. Patient's initial sepsis screen is negative. Triage Assessment: 16:39 General: Appears distressed, uncomfortable, Behavior is anxious. Pain: Denies pain. ls4 Neuro: Babinski TREMORS . Cardiovascular: Reports None Denies chest pain, Capillary refill < 3 seconds Edema is absent. Respiratory: Airway is patent Respiratory effort is even, unlabored, Respiratory pattern is regular. SOURCING CONSULTANT: 14:36 LMP N/A - Post-menopause hb Historical: - Allergies: 14:36 No Known Drug Allergies; hb - PMHx: 14:36 ADD/ADHD; Bipolar disorder; Glaucoma; Optic neuropathy; Anxiety; Ankylosing hb spondylosis; Hypertension; PFO; PTSD; skin cancer; - PSHx: 14:36 Cholecystectomy; neck surgery x 4; hb - Immunization history:: Adult Immunizations up to date. - Social history:: Smoking status: Patient/guardian denies using tobacco. - Ebola Screening: : No symptoms or risks identified at this time. Screenin:57 Abuse screen: Denies threats or abuse. Denies injuries from another. Nutritional ls4 screening: No deficits noted. Tuberculosis screening: No symptoms or risk factors identified. Fall Risk None identified. Assessment: 14:40 General: SEE TRIAGE ASSESSMENT. ls4 17:12 Reassessment: Patient and/or family updated on plan of care and expected duration. Pain ls4 level reassessed. Patient is alert, oriented x 3, equal unlabored respirations, skin warm/dry/pink. Patient states symptoms have improved. Vital Signs: 14:34 BP 152 / 77; Pulse 68; Resp 16; Temp 98.5; Pulse Ox 100% on R/A; Pain 0/10; hb 15:30 BP 138 / 74; Pulse 102; Resp 16; Temp 98.4; Pulse Ox 98% on R/A; Pain 5/10; ls4 16:30 BP 142 / 80; Pulse 101; Resp 20; Pulse Ox 99% on R/A; Pain 5/10; ls4 17:00 BP 122 / 70; Pulse 88; Resp 16; Pulse Ox 99% on R/A; Pain 3/10; ls4 18:00 BP 118 / 81; Pulse 78; Resp 16; Pulse Ox 99% on R/A; Pain 0/10; ls4 Visual Acuity: 14:40 Left Eye Visual acuity 20/40, ; Right Eye Visual acuity 20/40, ; Both Eyes Visual hb acuity 20/70; With Lenses; NIH Stroke Scale Scores: 15:28 NIHSS Score: 1 cp ED Course: 14:31 Patient arrived in ED. sb2 14:32 Mikey Mulligan MD is Private Physician. sb2 14:35 Triage completed. hb 14:36 Arm band placed on. hb 14:56 Blessing Adhikari, RN is Primary Nurse. ls4 14:57 Patient has correct armband on for positive identification. Placed in gown. Bed in low ls4 position. Call light in reach. Side rails up X 1. Warm blanket given. 14:57 No provider procedures requiring assistance completed. ls4 15:07 Kris Mota PA is PHCP. cp 15:07 Dominik Mcclellan MD is Attending Physician. cp 15:45 child monitor on. Pulse ox on. NIBP on. ls4 15:45 Inserted saline lock: 20 gauge in right antecubital area, using aseptic technique. ls4 15:[address] via wheelchair. nj 15:51 CT completed. Patient tolerated procedure well. Patient moved back from CT. nj 15:52 CT Head Brain wo Cont In Process Unspecified. EDMS 16:18 EKG done, by medical equipment technician. reviewed by Kris JUAREZ. sm3 16:21 XRAY Chest (1 view) In Process Unspecified. EDMS 17:35 Patient moved to MRI via wheelchair. em2 17:39 MRI - Brain Wo Cont In Process Unspecified. EDMS 17:57 MRI completed. Patient tolerated well. Patient moved back from MRI. em2 18:11 Annemarie Glover MD is Referral Physician. cp 18:43 IV discontinued, intact, bleeding controlled, No redness/swelling at site. Pressure ls4 dressing applied. Administered Medications: 17:00 Drug: NS 0.9% 1000 ml Route: IV; Rate: 1 bolus; Site: right antecubital; ls4 18:00 Follow up: IV Status: Completed infusion; IV Intake: 1000ml ls4 17:00 Drug: Aspirin 81 mg Route: PO; ls4 17:20 Follow up: Response: No adverse reaction ls4 18:42 Drug: foLIC Acid 1 mg Route: IVPB; Site: right antecubital; ls4 18:50 Follow up: Response: No adverse reaction; IV Status: Completed infusion ls4 Intake: 18:00 IV: 1000ml; Total: 1000ml. ls4 Outcome: 18:12 Discharge ordered by MD. cp 18:41 Discharged to home ambulatory, with family. ls4 18:41 Condition: stable 18:41 Discharge instructions given to patient, family, Instructed on discharge instructions, follow up and referral plans. medication usage, Demonstrated understanding of instructions, follow-up care, medications. 18:44 Patient left the ED. ls4 NIH Stroke Scale - NIH Stroke Score Date: 09/29/2018 Time: 15:28 Total Score = 1 1a. Level of Consciousness (LOC) - 0(Alert) 1b. Level of Consciousness (LOC) (Year \\T\\ Age) - 0(Both) 1c. LOC Commands (Open \\T\\ Closes Eyes/Electronic Operator) - 0(Both) 2. Best Gaze (Lateral Gaze Paresis) - 0(Normal) 3. Visual Field Loss - 1(Partial hemianopia) 4. Facial Palsy - 0(Normal) 5a. Left Arm: Motor (10-second hold) - 0(No drift) 5b. Right Arm: Motor (10-second hold) - 0(No drift) 6a. Left Leg: Motor (5-second hold - always test supine) - 0(No drift) 6b. Right Leg: Motor (5-second hold - always test supine) - 0(No drift) 7. Limb Ataxia (finger/nose \\T\\ heel/olivarez - test with eyes open) - 0(Absent) 8. Sensory Loss (pinprick arms/legs/face) - 0(Normal) 9. Best Language: Aphasia (description/naming/reading) - 0(No aphasia) 10. Dysarthria (speech clarity - read or repeat words) - 0(Normal) 11. Extinction and Inattention (visual/tactile/auditory/spatial/personal) - 0(No abnormality) Initials: cp Signatures: Dispatcher [employer] EDNorm Reddy em2 Kris Mota PA PA cp Daija Gutierrez, RN RN Chuy Menendez Sheri sb2 Irma Riojas sm3 Blessing Adhikari RN RN ls4
--- NOTE | 2018-09-29 18:13 | EDPHYS ---
Physician Documentation [facility] Name: Viktoriya Portillo Age: 48 yrs Sex: Female : 1970 Arrival Date: 09/29/2018 Time: 14:31 Bed 15 Private MD: Mikey Mulligan T ED Physician Dominik Mcclellan HPI: 09/29 15:23 This 48 yrs old Female presents to ER via Wheelchair with complaints of cp SHAKINESS, Vision Problem. 15:23 The patient is experiencing triple vision, to both eyes, caused by an unknown cp mechanism. Onset: The symptoms/episode began/occurred 1 hour(s) ago. 15:23 Duration: the symptoms are continuous. Associated signs and symptoms: Pertinent cp positives: tremulous. Patient wears glasses. Severity of symptoms: in the emergency department the symptoms are unchanged. 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 Patient denies loss of vision. 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 - Social history:: Smoking status: Patient/guardian denies using tobacco. - Ebola Screening: : No symptoms or risks identified at this time. ROS: 15:25 Constitutional: Negative for body aches, chills, fever, poor PO intake. cp 15:25 ENT: Negative for injury, pain, and discharge. cp 15:25 Eyes: Positive for visual disturbance, described as "triple vision", Negative for discharge, pain, photophobia, redness, vision loss. 15:25 Cardiovascular: Negative for chest pain, edema, palpitations. 15:25 Respiratory: Negative for cough, shortness of breath, wheezing. 15:25 Abdomen/GI: Negative for abdominal pain, nausea, vomiting, and diarrhea, black/tarry stool, rectal bleeding. 15:25 : Negative for urinary symptoms. 15:25 Skin: Negative for cellulitis, rash. 15:25 Neuro: Positive for tremor, Negative for altered mental status, headache, numbness, speech changes, syncope, weakness. 15:25 All other systems are negative. Exam: 15:25 Visual Acuity: I have reviewed the nursing documentation. cp 15:28 Constitutional: The patient appears in no acute distress, alert, awake, cp non-diaphoretic, non-toxic, well developed, well nourished. 15:28 Head/Face: Normocephalic, atraumatic. cp 15:28 Eyes: Periorbital structures: appear normal, Pupils: equal, round, and reactive to light and accomodation, Extraocular movements: intact throughout, Conjunctiva: normal, no exudate, no injection, Sclera: no appreciated abnormality, Lids and lashes: appear normal, bilaterally, Visual martino: decreased visual field right eye right upper lateral area. 15:28 ENT: External ear(s): are unremarkable, Ear canal(s): are normal, clear, TM's: bulging, is not appreciated, bilaterally, dullness, bilaterally, erythema, is not appreciated, bilaterally, Nose: is normal, Mouth: Lips: moist, Oral mucosa: pink and intact, moist, Posterior pharynx: is normal, airway is patent, no erythema, no exudate, Voice: is normal. 15:28 Neck: ROM/movement: is normal, is supple, without pain, no range of motions limitations, no meningismus, no nuchal rigidity. 15:28 Chest/axilla: Inspection: normal, Palpation: is normal, no crepitus, no tenderness. 15:28 Cardiovascular: Rate: normal, Rhythm: regular, Pulses: Pulses are 2+ in right radial artery and left radial artery. Heart sounds: murmur, not appreciated, Edema: is not appreciated, JVD: is not appreciated. 15:28 Respiratory: the patient does not display signs of respiratory distress, Respirations: normal, no use of accessory muscles, no retractions, no splinting, no tachypnea, labored breathing, is not present, Breath sounds: are clear throughout, no decreased breath sounds, no stridor, no wheezing. 15:28 Abdomen/GI: Inspection: abdomen appears normal, Bowel sounds: active, all quadrants, Palpation: abdomen is soft and non-tender, in all quadrants, rebound tenderness, is not appreciated, voluntary guarding, is not appreciated, involuntary guarding, is not appreciated. 15:28 Back: pain, is absent, ROM is normal. 15:28 Skin: cellulitis, is not appreciated, no rash present. 15:28 Neuro: Orientation: to person, place \\T\\ time. Mentation: is normal, Cerebellar function: Romberg testing is negative, normal finger to nose testing, heel to olivarez testing is normal, Motor: moves all fours, strength is normal, Sensation: no obvious gross deficits, Abnormal movements: resting tremor, is located in the right hand and left hand. 16:15 ECG was reviewed by the Attending Physician. cp Vital Signs: 14:34 BP 152 / 77; Pulse 68; Resp 16; Temp 98.5; Pulse Ox 100% on R/A; Pain 0/10; hb 15:30 BP 138 / 74; Pulse 102; Resp 16; Temp 98.4; Pulse Ox 98% on R/A; Pain 5/10; ls4 16:30 BP 142 / 80; Pulse 101; Resp 20; Pulse Ox 99% on R/A; Pain 5/10; ls4 17:00 BP 122 / 70; Pulse 88; Resp 16; Pulse Ox 99% on R/A; Pain 3/10; ls4 18:00 BP 118 / 81; Pulse 78; Resp 16; Pulse Ox 99% on R/A; Pain 0/10; ls4 NIH Stroke Scale Scores: 15:28 NIHSS Score: 1 cp Visual Acuity: 14:40 Left Eye Visual acuity 20/40, ; Right Eye Visual acuity 20/40, ; Both Eyes Visual hb acuity 20/70; With Lenses; MDM: 15:08 Patient medically screened. cp 16:00 Differential diagnosis: Acute iritis of Acute glaucoma in TIA, migraine, CVA. cp 16:44 Physician consultation: Dakotah Mckinley MD was called at 16:44, was contacted at 16:44, cp regarding consult, patient's condition. 17:01 Physician consultation: Makenna Reyes MD was called at 16:50, was contacted at 16:50, cp regarding admission, to the telemetry unit. patient's condition, wants MRI of brain and if normal will talk with patient's neuroophthalmologist DR Salgado in [place] and oncall lighting engineering technician DR Glover for f/u in [facility]. 17:45 Physician consultation: Makenna Reyes MD was contacted at 17:30, regarding admission, cp to the telemetry unit. Recommends outpatient f/u with DR Glover tomorrow for reevaluation if MRI of brain is normal. Wants patient started on oral prednisone 20 mg bid for 5 days. 18:10 Data reviewed: vital signs, nurses notes, lab test result(s), EKG, radiologic studies, cp CT scan, MRI, plain films, I have discussed the patient's presentation/case with the attending Emergency Department Physician; and as a result, I will discharge patient. 18:10 Test interpretation: by ED physician or midlevel provider: ECG, plain radiologic cp studies. Response to treatment: the patient's symptoms have markedly improved after treatment, VSS. Reexamination shows visual martino now intact throughout and tremor resolved. Patient c/o slight headache. Recommend treatment with OTC meds and will discharge to home for continued monitoring. 09/29 15:23 Order name: Basic Metabolic Panel; Complete Time: 16:43 cp 02/ 15:23 Order name: CBC with Diff; Complete Time: 16:35 cp 02/12 16:35 Interpretation: Normal except: MPV 7.4. cp 02/12 15:23 Order name: LFT's; Complete Time: 16:43 cp 02/12 15:23 Order name: Magnesium; Complete Time: 16:43 cp 02/12 15:23 Order name: NT PRO-BNP; Complete Time: 16:43 cp 02/12 15:23 Order name: PT-INR; Complete Time: 16:35 cp 02/12 16:35 Interpretation: Reviewed. cp / 15:23 Order name: Troponin (emerg Dept Use Only); Complete Time: 16:43 cp 02/12 15:23 Order name: XRAY Chest (1 view); Complete Time: 16:35 cp 02/12 15:23 Order name: CT Head Brain wo Cont; Complete Time: 16:35 cp 02/12 16:22 Order name: Urine Dipstick--Ancillary (enter results); Complete Time: 16:36 eb 02/12 16:22 Order name: Urine --Ancillary (enter results); Complete Time: 16:36 eb /12 16:53 Order name: MRI - Brain Wo Cont; Complete Time: 18:06 cp / 15:23 Order name: EKG; Complete Time: 15:24 cp 02/12 15:23 Order name: Cardiac monitoring; Complete Time: 18:44 cp 09/29 15:23 Order name: EKG - Nurse/Tech; Complete Time: 18:44 cp 09/29 15:23 Order name: IV Saline Lock; Complete Time: 18:45 cp 09/29 15:23 Order name: Labs collected and sent; Complete Time: 18:45 09/29 15:23 Order name: O2 Per Protocol; Complete Time: 18:45 09/29 15:23 Order name: O2 Sat Monitoring; Complete Time: 18:45 09/29 15:23 Order name: Accucheck Blood Glucose; Complete Time: 17:12 cp EC:15 Rate is 82 beats/min. Rhythm is regular. MT interval is normal. QRS interval is normal. cp QT interval is normal. T waves are Flattened in lead aVL. Interpreted by me. Reviewed by me. Administered Medications: 17:00 Drug: NS 0.9% 1000 ml Route: IV; Rate: 1 bolus; Site: right antecubital; ls4 18:00 Follow up: IV Status: Completed infusion; IV Intake: 1000ml ls4 17:00 Drug: Aspirin 81 mg Route: PO; ls4 17:20 Follow up: Response: No adverse reaction ls4 18:42 Drug: foLIC Acid 1 mg Route: IVPB; Site: right antecubital; ls4 18:50 Follow up: Response: No adverse reaction; IV Status: Completed infusion ls4 Disposition: 18:53 Co-signature as Attending Physician, Dominik Mcclellan MD. rn Disposition: 09/29/18 18:12 Discharged to Home. Impression: Visual disturbances, Tremor, unspecified. - Condition is Stable. - Discharge Instructions: Visual Disturbances, Tremor. - Prescriptions for Prednisone 20 mg Oral Tablet - take 2 tablet by ORAL route once daily for 5 days; 10 tablet. - Medication Reconciliation Form, Thank You Letter, Antibiotic Education, Prescription Opioid Use form. - Follow up: Annemarie Glover MD; When: Tomorrow; Reason: Recheck today's complaints, in clinic. - Problem is new. - Symptoms have improved. NIH Stroke Scale - NIH Stroke Score Date: 09/29/2018 Time: 15:28 Total Score = 1 1a. Level of Consciousness (LOC) - 0(Alert) 1b. Level of Consciousness (LOC) (Year \\T\\ Age) - 0(Both) 1c. LOC Commands (Open \\T\\ Closes Eyes/Development Technical Lead) - 0(Both) 2. Best Gaze (Lateral Gaze Paresis) - 0(Normal) 3. Visual Field Loss - 1(Partial hemianopia) 4. Facial Palsy - 0(Normal) 5a. Left Arm: Motor (10-second hold) - 0(No drift) 5b. Right Arm: Motor (10-second hold) - 0(No drift) 6a. Left Leg: Motor (5-second hold - always test supine) - 0(No drift) 6b. Right Leg: Motor (5-second hold - always test supine) - 0(No drift) 7. Limb Ataxia (finger/nose \\T\\ heel/olivarez - test with eyes open) - 0(Absent) 8. Sensory Loss (pinprick arms/legs/face) - 0(Normal) 9. Best Language: Aphasia (description/naming/reading) - 0(No aphasia) 10. Dysarthria (speech clarity - read or repeat words) - 0(Normal) 11. Extinction and Inattention (visual/tactile/auditory/spatial/personal) - 0(No abnormality) Initials: cp Signatures: Dispatcher [employer] EDMS Dominik Mcclellan MD MD rn Page, Corey, PA PA cp Daija Gutierrez RN RN hb Stewart, Lisa, RN RN ls4 Corrections: (The following items were deleted from the chart) 18:44 18:12 09/29/2018 18:12 Discharged to Home. Impression: Visual disturbances; ls4 Tremor, unspecified. Condition is Stable. Forms are Medication Reconciliation Form, Thank You Letter, Antibiotic Education, Prescription Opioid Use. Follow up: Annemarie Glover; When: Tomorrow; Reason: Recheck today's complaints, in clinic. Problem is new. Symptoms have improved. cp
== END 2018-09-29 18:44 | disposition home or self-care (01) ==
LOC: ER 14:27
DX: R25.1 Tremor, unspecified (principal); I10 Essential (primary) hypertension; Z85.828 Personal history of other malignant neoplasm of skin
CPT/HCPCS: 36415; 70450; 70551; 71045; 80048; 80076; 81003; 81025; 83735; 83880; 84484; 85025; 85610; 93005; J7030; 96361; 96374; 99285

== ENCOUNTER 2020-12-09 14:59 | Emergency (ER) | payer SELFPAY ==
--- OUTSIDE RECORDS SUMMARY | 2020-12-09 15:01 | XMS REPORT | Continuity of Care Document ---
:1970 Author Organization [facility] t Address [address] [place] [address] Care Team Providers Name Role Phone Teofilo Sotelo MD Attending Clinician Problems This patient has no known problems. Allergies, Adverse Reactions, Alerts This patient has no known allergies or adverse reactions. Medications This patient has no known medications. Procedures This patient has no known procedures. Encounters Start End Encounter Admission Attending Care Care Encounter Source Date/Time Date/Time Type Type Clinicians Facility Department ID 2020-03-03 2020-03-03 Office TEDDY Sotelo [id number] 14:19:01 16:15:38 Visit Terry Ríos [id number] [facility] [id number] [place] [id number] n[place] 092 Building Results This patient has no known results.
--- NOTE | 2020-12-09 17:56 | ER ---
Nurse's Notes [facility] Name: Viktoriya Portillo Age: 50 yrs Sex: Female : 1970 Arrival Date: 12/09/2020 Time: 15:03 Bed Waiting Private MD: Diagnosis: Presentation: 12/09 15:06 Chief complaint: Patient states: Chronic neck pain flare-up for 5 days. Radiates into R ll1 chest and down R arm. No new trauma or falls recently. Coronavirus screen: Client denies travel out of the [place] in the last 14 days. At this time, the client does not indicate any symptoms associated with coronavirus-19. Ebola Screen: Patient denies travel to an Ebola-affected area in the 21 days before illness onset. Acute neurological deficit: none identified. Initial Sepsis Screen: Does the patient meet any 2 criteria? No. Patient's initial sepsis screen is negative. Does the patient have a suspected source of infection? Yes: Bone or joint infection. Risk Assessment: Do you want to hurt yourself or someone else? Patient reports no desire to harm self or others. Onset of symptoms was December 07, 2020. 15:06 Method Of Arrival: Ambulatory ll1 15:06 Acuity: NENA 3 ll1 Historical: - Allergies: 15:10 No Known Allergies; ll1 - PMHx: 15:10 Ankylosing spondylosis; Hypertension; Glaucoma; Optic neuropathy; Bipolar disorder; ll1 Anxiety; PFO; PTSD; skin cancer; ADD/ADHD; - PSHx: 15:10 Cholecystectomy; neck surgery x 4; ll1 - Immunization history:: Flu vaccine is not up to date. - Social history:: Smoking status: Patient denies any tobacco usage or history of. Vital Signs: 15:06 BP 155 / 83; Pulse 80; Resp 16; Temp 98.6; Pulse Ox 100% ; Weight 63.5 kg; Height 5 ft. ll1 3 in. (160.02 cm); Pain 10/10; 15:06 Body Mass Index 24.80 (63.50 kg, 160.02 cm) ll1 ED Course: 15:03 Patient arrived in ED. ll1 15:09 Triage completed. ll1 15:10 Arm band placed on. ll1 17:50 Yasmani Portillo NP is PHCP. pm1 17:50 Kris Bland MD is Attending Physician. pm1 17:55 Patient's name was called from ER chantel. No response. Unable to locate patient. Will bb disposition as left without being seen by a provider. Administered Medications: No medications were administered Outcome: 17:55 Patient left the ED. bb 17:55 Eloped from waiting room, before seeing physician ss Signatures: Christie Martinez RN RN bb Janny Rhoades RN RN ss Yasmani Portillo, TILE FITTER TILE FITTER pm1 Marleny Mcfarland RN RN ll1
[2020-12-09 18:22] VITALS: BP 155/83; TEMP 98.6; O2SAT 100
== END 2020-12-09 17:55 | disposition left against medical advice (07) ==
LOC: ER 14:59
DX: Z53.21 Procedure and treatment not carried out due to patient leaving prior to being seen by health care provider (principal)
CPT/HCPCS: 99281

== ENCOUNTER 2021-09-27 11:05 | Day surgery (SDC) | payer OTHER ==
[2021-09-27] MEDS ORDERED: Ringers Lactate 1,000 ML IV ONE (11:27)
[2021-09-27 11:28] LABS: Specific Gravity 1.015 (1.005-1.030)
[2021-09-27] MEDS ORDERED: LIDOCAINE 1% W/EPI 1:100,000 10 ML VIAL ONE (12:10)
[2021-09-27] MEDS ORDERED: MIDAZOLAM HCL 2 MG/2 ML INJ ONE (12:53)
[2021-09-27] MEDS ORDERED: FENTANYL CITR 100 MCG/2 ML ONE (13:01)
[2021-09-27] MEDS ORDERED: LIDOCAINE 1% MPF 5 ML VIAL ONE (13:01)
[2021-09-27] MEDS ORDERED: propofoL 200 MG/20 ML VIAL IV ONE (13:01)
[2021-09-27] MEDS ORDERED: dexAMETHasone 10 MG/ML VIAL ONE (13:08)
[2021-09-27] MEDS ORDERED: KETOROLAC 30 MG/ML INJ ONE (13:08)
[2021-09-27] MEDS ORDERED: ONDANSETRON 4 MG/2 ML VIAL ONE (13:15)
[2021-09-27] MEDS ORDERED: HYDROCODONE/APAP 5/325 MG TAB PO PRN (13:41)
--- NOTE | 2021-09-27 13:44 | P.BOP ---
Preoperative diagnosis: PMB Postoperative diagnosis: same Primary procedure: Hysteroscopy d/c Piccoloist: NONE,NONE Estimated blood loss: min Specimen: EMC Findings: atrophic lining, small cavity Anesthesia: General Complications: None Transferred to: Recovery Room Condition: Good
[2021-09-27] MEDS: FENTANYL CITR 100 MCG/2 ML ONE ×4 (13:51→14:13)
[2021-09-27] MEDS ORDERED: HYDROCODONE/APAP 5/325 MG TAB ONE (14:37)
[2021-09-27 14:41] VITALS: BP 112/89; TEMP 97.5; O2SAT 96
--- NOTE | 2021-09-27 15:31 | OP ---
Date of Procedure: 09/27/2021 Surgeon: Joanie Whitehead MD Jewel Gauger: No assistants. Preoperative Diagnosis: Postmenopausal bleeding. Postoperative Diagnosis: Postmenopausal bleeding. Procedures Performed: Hysteroscopy, D and C. Anesthesia: General with LMA. Complications: No complications. Drains: No drains. Specimens: Endometrial curettings. Estimated Blood Loss: Minimal. Findings: Atrophic lining, small cavity. Procedure In Detail: After informed consent was verified, the patient was taken back to the OR, plac ed in supine fashion on the table. Then, general anesthesia with LMA was given. Vulva and vagina we re prepped and draped in a sterile fashion. Speculum placed to expose the cervix. Cervix appeared t o be flushed with the vagina, picked up with an Allis clamp, and then the second Allis was placed. C ervical os the external area was opened up with the tip of hemostat. Then, a SlimLine hysteroscope p laced through the cervical canal and traversed under direct vision into the uterine cavity. Cavity w as small. No intrauterine masses. Both tubal ostia were visualized. The endometrium appeared to be atrophic. Scope was pulled out. Cervix was dilated to 14-English and then curettage was performed. Adequate sample was obtained and sent over for permanent pathology. Instruments removed. Instrumen t, needle, and sponge counts correct. The patient recovered from anesthesia and taken to PACU in a s table condition. She will follow up in 1 week. If the pathology is negative, then we will observe. ALPHONSE/CARMEN Voice ID: [id number] Report ID: [id number]
[2021-09-27] MEDS ORDERED: PREGABALIN 75 MG CAP PO SCH (21:00)
[2021-09-27] MEDS ORDERED: SERTRALINE HCL 100 MG TAB PO SCH (21:00)
[2021-09-28] MEDS ORDERED: LITHIUM CARBONATE 300 MG CAP PO SCH (09:00)
[2021-09-28] MEDS ORDERED: FOLIC ACID 1 MG TABLET PO SCH (09:00)
[2021-09-28] MEDS ORDERED: METHOTREXATE 2.5 MG TAB PO SCH (09:00)
[2021-09-28] MEDS ORDERED: HOME MED 1 EA UNK (Lamotrigine [Lamictal] 200 MG Tablet) PO SCH (09:00)
[2021-09-28] MEDS ORDERED: hydrOXYzine HCL 25 MG TAB PO SCH (09:00)
[2021-09-28] MEDS ORDERED: DICLOFENAC POTASSIUM 50 MG PO SCH (09:00)
[2021-09-28] MEDS ORDERED: BIMATOPROST OPHTH DROPS/2.5 ML BTL OPTH SCH (09:00)
[2021-09-28] MEDS ORDERED: carisoprodoL 350 MG TAB PO SCH (09:00)
== END 2021-09-27 15:25 | disposition home or self-care (01) ==
LOC: OR 11:05
PROVIDERS: ATTEND Obstetrics & Gynecology
PROC: 0UJD8ZZ Inspection of Uterus and Cervix, Via Natural or Artificial Opening Endoscopic (ICD-10-PCS; 2021-09-27)
PROC: 0UDB7ZX Extraction of Endometrium, Via Natural or Artificial Opening, Diagnostic (ICD-10-PCS; principal; 2021-09-27 12:30)
DX: N95.0 Postmenopausal bleeding (principal); Z20.822 Contact with and (suspected) exposure to COVID-19
CPT/HCPCS: 81025; 88305; 58558; U0003; J2704; J2250; J3010 ×2; J1100; J7120; J2405